=== PATIENT | male | born 1980 | race Caucasian/White ===

== ENCOUNTER 2017-08-20 16:16 | Emergency (ER) | payer MEDICAID ==
--- NOTE | 2017-08-20 16:56 | EDPHY ---
H & P Time Seen by Provider: 08/20/17 16:36 HPI/ROS: CHIEF COMPLAINT: Painless rectal bleeding, intermittent diarrhea HISTORY OF PRESENT ILLNESS: 36-year-old male presents to the emergency department by private vehicle complaining of intermittent painless rectal bleeding for last 2 weeks. He has had diarrhea as well as formed stool. He has no abdominal pain or rectal pain associated with this. No chest pain or difficulty breathing. No recent travel. He does not take ibuprofen or aspirin. No hematemesis. No coffee-ground emesis. His appetite has been normal. No fevers or chills. No reported trauma. No rectal foreign body. No history of colon cancer in his family that he is aware of. REVIEW OF SYSTEMS: Constitutional: No fever, no chills. Eyes: No double or blurry vision. ENT: No sore throat. Respiratory: No cough, no shortness of breath. Cardiac: No chest pain. Gastrointestinal: No abdominal pain, vomiting or diarrhea. Genitourinary: No dysuria. Musculoskeletal: No neck or back pain. Skin: No rashes. Neurological: No headache. Past Medical/Surgical History: Mental health history Social History: Single. 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 Vital signs are stable. Eyes: Pupils equal and round. Extraocular motions are all intact. ENT: Mouth: Mucous membranes moist. Respiratory: No wheezing, rhonchi, or rales, lungs are clear to auscultation. Cardiovascular: Regular rate and rhythm. Gastrointestinal: Abdomen is soft and nontender, no masses, no rebound or guarding, bowel sounds normal. There is a well-healed midline surgical incision noted to the abdomen. Rectal exam: Performed with nurseBecca, at bedside. No evidence external hemorrhoids. Normal sphincter tone. No palpable mass. Small amount of mucus noted that was slightly pink tinged. Neurological: Alert and oriented x 3, cranial nerves II through XII grossly intact Skin: Warm and dry, no rashes. Musculoskeletal: Nontender to palpate along the cervical, thoracic or lumbar spine. Neck is supple. Extremities: Full range of motion and no peripheral edema. Psychiatric: Patient is oriented X 3, there is no agitation. Constitutional: Initial Vital Signs Temperature (C) 36.8 C 08/20/17 16:19 Heart Rate 76 08/20/17 16:19 Respiratory Rate 18 08/20/17 16:19 Blood Pressure 140/92 H 08/20/17 16:19 O2 Sat (%) 95 08/20/17 16:19 O2 Delivery Mode Room Air Allergies/Adverse Reactions: No Known Allergies Allergy (Unverified 08/20/17 16:17) Home Medications: Medication Instructions Recorded Adderex 08/20/17 Paxil 08/20/17 TEGretol (*) 08/20/17 Vyvanse 08/20/17 Medical Decision Making ED Course/Re-evaluation: Patient's abdomen is soft and nontender. No peritoneal signs. The patient has no abdominal pain. On rectal examination he had pink tinged mucus. Guaiac positive. His CBC and chemistries were normal. I spoke with Dr. Quinten Vega, on-call mechanical product design engineer, who will see this patient in follow-up. He agrees with discharging the patient home. I do not think imaging studies are indicated. The patient has no abdominal pain. Case was discussed with Dr. Tracy Sullivan, supervising physician, who did not directly evaluate the patient but agrees with treatment and plan. Differential Diagnosis: Including but not limited to hemorrhoid, GI bleed, polyp, diverticulitis - Data Points Laboratory Results: Laboratory Results 08/20/17 17:40 08/20/17 17:40 08/20/17 08/20/17 08/20/17 17:40 17:40 16:50 WBC 6.21 10^3/uL 10^3/uL (3.80-9.50) RBC 5.05 10^6/uL 10^6/uL (4.40-6.38) Hgb 14.6 g/dL g/dL (13.7-17.5) Hct 42.8 % % (40.0-51.0) MCV 84.8 fL fL (81.5-99.8) MCH 28.9 pg pg (27.9-34.1) MCHC 34.1 g/dL g/dL (32.4-36.7) RDW 11.5 % % (11.5-15.2) Plt Count 206 10^3/uL 10^3/uL (150-400) MPV 10.5 fL fL (8.7-11.7) Neut % (Auto) 61.4 % % (39.3-74.2) Lymph % (Auto) 26.7 % % (15.0-45.0) [place] % (Auto) 7.4 % % (4.5-13.0) Eos % (Auto) 3.5 % % (0.6-7.6) Baso % (Auto) 0.8 % % (0.3-1.7) Nucleat RBC Rel Count 0.0 % % (0.0-0.2) Absolute Neuts (auto) 3.81 10^3/uL 10^3/uL (1.70-6.50) Absolute Lymphs (auto) 1.66 10^3/uL 10^3/uL (1.00-3.00) Absolute Monos (auto) 0.46 10^3/uL 10^3/uL (0.30-0.80) Absolute Eos (auto) 0.22 10^3/uL 10^3/uL (0.03-0.40) Absolute Basos (auto) 0.05 10^3/uL 10^3/uL (0.02-0.10) Absolute Nucleated RBC 0.00 10^3/uL 10^3/uL (0-0.01) Immature Gran % 0.2 % % (0.0-1.1) Immature Gran # 0.01 10^3/uL 10^3/uL (0.00-0.10) Sodium 138 mEq/L mEq/L (134-144) Potassium 4.1 mEq/L mEq/L (3.5-5.2) Chloride 103 mEq/L mEq/L (97-110) Carbon Dioxide 23 mEq/l mEq/l (22-31) Anion Gap 12 mEq/L mEq/L (8-16) BUN 11 mg/dL mg/dL (7-23) Creatinine 0.7 mg/dL mg/dL (0.7-1.3) Estimated GFR > 60 Glucose 85 mg/dL mg/dL (70-100) Calcium 9.2 mg/dL mg/dL (8.5-10.4) Stool Occult Bld Scrn POSITIVE H (NEGATIVE) Departure - Departure Disposition: Home, Routine, Self-Care Clinical Impression: Rectal bleeding Condition: Good Instructions: Rectal Bleeding (ED) Additional Instructions: Call to arrange follow-up appointment with on-call mechanical product design engineer. Tell them that you were seen in the emergency department told to be seen for follow- up. Return to the emergency department sooner if you developed recurring bright red brisk bleeding, if you feel lightheaded, if you have any episodes of passing out, if he developed abdominal pain, or if you feel worse in any way. Referrals: Quinten Vega MD [place] [place] - 1-2 days without fail ( [employer] Car Worker on-call)
[2017-08-20 18:01] LABS: % IMMATURE GRANULYOCYTES 0.2 % (0.0-1.1); ABSOLUTE IMMATURE GRANULOCYTES 0.01 10^3/uL (0.00-0.10); ADD DIFF? NO; ADD MORPH? NO; ADD SCAN? YES; ATYPICAL LYMPHOCYTE FLAG 0 (0-99); FRAGMENT RBC FLAG 0 (0-99); HEMATOCRIT 42.8 % (40.0-51.0); HEMOGLOBIN 14.6 g/dL (13.7-17.5); LEFT SHIFT FLG 0 (0-99); LIPEMIA HEMOLYSIS FLAG 90 (0-99); MEAN CELL HEMOGLOBIN 28.9 pg (27.9-34.1); MEAN CELL HEMOGLOBIN CONCENTR. 34.1 g/dL (32.4-36.7); MEAN CELL VOLUME 84.8 fL (81.5-99.8); MEAN PLATELET VOLUME 10.5 fL (8.7-11.7); PLATELET COUNT 206 10^3/uL (150-400); RED BLOOD CELL COUNT 5.05 10^6/uL (4.40-6.38); RED CELL DISTRIBUTION WIDTH 11.5 % (11.5-15.2)
[2017-08-20 18:08] LABS: PLATELET CLUMPS FLAG 210 (0-99)
[2017-08-20 18:09] LABS: ANION GAP 12 mEq/L (8-16); CALCIUM 9.2 mg/dL (8.5-10.4); CARBON DIOXIDE 23 mEq/l (22-31); CHLORIDE 103 mEq/L (97-110); CREATININE 0.7 mg/dL (0.7-1.3); GLOMERULAR FILTRATION RATE > 60; GLUCOSE 85 mg/dL (70-100); POTASSIUM 4.1 mEq/L (3.5-5.2); SODIUM 138 mEq/L (134-144)
[2017-08-20 18:59] LABS: SCAN NEGATIVE
[2017-08-20 19:11] VITALS: BP 135/102; PULSE 82; RESP 16; TEMP 97.9; O2SAT 93
== END 2017-08-20 19:11 | disposition home or self-care (01) ==
DX: K62.5 Hemorrhage of anus and rectum (principal); F17.200 Nicotine dependence, unspecified, uncomplicated